=== PATIENT | male | born 1990 | race African-American/Black ===

== ENCOUNTER 2022-08-20 05:57 | Emergency (ER) | payer OTHER ==
[~2022-08-20] VITALS: Ht 167.6 cm; Wt 66.2 kg
[2022-08-20] MEDS ORDERED: IBUPROFEN 400MG TABLET PO ONE (09:15)
[2022-08-20 09:35] VITALS: BP 125/57
[2022-08-20] MEDS ORDERED: APIX5TAB MT (10:54)
[2022-08-20] MEDS ORDERED: APIX5TAB PO (10:54)
== END 2022-08-20 11:12 | disposition home or self-care (01) ==
LOC: ER 06:06
DX: I82.401 Acute embolism and thrombosis of unspecified deep veins of right lower extremity (principal); R50.9 Fever, unspecified; M79.18 Myalgia, other site
CPT/HCPCS: 93971; 99284